=== PATIENT | female | born 1985 | race American Indian/Alaskan Native ===

== ENCOUNTER 2018-12-29 19:07 | Emergency (ER) | payer MEDICAID ==
[2018-12-29 20:45] LABS: Basophils # (Auto) 0.1 K/mm3 (0.0-0.1); Basophils % (Auto) 0.7 % (0.0-1.8); Eosinophils # (Auto) 0.2 K/mm3 (0.0-0.4); Eosinophils % (Auto) 1.7 % (0.0-4.3); Hematocrit 32.3 % (30.3-42.9); Hemoglobin 10.6 gm/dl (10.1-14.3); Lymphocytes # (Auto) 3.2 K/mm3 (1.2-5.4); Lymphocytes % (Auto) 36.1 % (13.4-35.0); Mean Corpuscular HGB Conc 33 % (30-34); Mean Corpuscular Volume 82 fl (79-97); Monocytes % (Auto) 11.1 % (0.0-7.3); Platelet Count 316 K/mm3 (140-440); Red Blood Count 3.93 M/mm3 (3.65-5.03); Red Cell Distribution Width 15.4 % (13.2-15.2)
[2018-12-29 20:57] LABS: Bacteria,Urine 1+ /HPF (Negative); Bilirubin,Urine NEG (Negative); Blood,Urine LG (Negative); Color,Urine Yellow (Yellow); Mucus,Urine FEW /HPF; Protein,Urine <15 mg/dL mg/dL (Negative); Urobilinogen,Urine < 2.0 mg/dL (<2.0)
[2018-12-29 21:00] LABS: HCG Qualitative,Urine Negative (Negative)
[2018-12-29 21:15] LABS: BUN/Creatinine Ratio 13; Blood Urea Nitrogen 10 mg/dL (7-17); Calcium 9.1 mg/dL (8.4-10.2); Hemolysis Index 1
[2018-12-29] MEDS ORDERED: TORADOL IV ONE (22:02)
[2018-12-29] MEDS ORDERED: ZOFRAN IV ONE (22:02)
[2018-12-29] MEDS ORDERED: TORADOL IM ONE (22:07)
--- NOTE | 2018-12-29 22:13 | Emergency Department Report ---
ED Female HPI - General Chief complaint: Abdominal Pain Stated complaint: LOWER ABD PAIN Time Seen by Provider: 12/29/18 22:00 Source: patient Mode of arrival: Ambulatory Limitations: No Limitations - History of Present Illness Initial comments: The patient is a 3-year-old female with a history of a AUB who presents for left flank pain she frequency but no hematuria and no fever no chills no nausea vomiting states history of renal stones does not think she has a renal stone at this time last menstrual cycle 1 month ago states vaginal bleeding 1 after starting Depo patient has not returned to follow-up GI appointment at this time MD Complaint: vaginal bleeding, dysuria Onset/Timin -: month(s) Radiation: non-radiating Severity: moderate Severity scale (0 -10): 4 Quality: cramping (spasm ) Consistency: intermittent Improves with: none Worsens with: urination Are you Now?: No Last Menstrual Period: 11/17/18 EDC: 08/24/19 Associated Symptoms: vaginal bleeding, abdominal pain, dysuria. denies: vaginal discharge, nausea/vomiting, fever/chills, headaches, loss of appetite, hematuria, rash, seizure, shortness of breath, syncope, weakness - Related Data Sexually active: Yes : 0 Para: 0 A: 0 Previous Rx's Medication Instructions Recorded Last Taken Type Ibuprofen 800 mg PO TID PRN #30 tablet 12/29/18 Unknown Rx Nitrofurantoin [place]/M-Cryst 100 mg PO BID 7 Days #14 capsule 12/29/18 Unknown Rx [Macrobid CAP] Allergies Allergy/AdvReac Type Severity Reaction Status Date / Time No Known Allergies Allergy Unverified 12/29/18 19:10 ED Review of Systems ROS: Stated complaint: LOWER ABD PAIN Other details as noted in HPI Constitutional: denies: chills, fever Eyes: denies: eye pain, eye discharge, vision change ENT: denies: ear pain, throat pain Respiratory: denies: cough, shortness of breath, wheezing Cardiovascular: denies: chest pain, palpitations Endocrine: no symptoms reported Gastrointestinal: abdominal pain. denies: nausea, vomiting, diarrhea, constipation, hematemesis, melena, hematochezia Genitourinary: urgency, dysuria, frequency. denies: hematuria, discharge, abnormal menses, dyspareunia Musculoskeletal: denies: back pain, joint swelling, arthralgia Skin: denies: rash, lesions Neurological: denies: headache, weakness, paresthesias Psychiatric: denies: anxiety, depression Hematological/Lymphatic: denies: easy bleeding, easy bruising ED Past Medical Hx - Past Medical History Previous Medical History?: Yes Additional medical history: Ovarian Cyst, Positive Colposcopy - Surgical History Past Surgical History?: No - Social History Smoking Status: Never Smoker Substance Use Type: None - Medications Home Medications: Home Medications Medication Instructions Recorded Confirmed Last Taken Type Ibuprofen 800 mg PO TID PRN #30 tablet 12/29/18 Unknown Rx Nitrofurantoin [place]/M-Cryst 100 mg PO BID 7 Days #14 capsule 12/29/18 Unknown Rx [Macrobid CAP] ED Physical Exam - General Limitations: No Limitations General appearance: alert, in no apparent distress - Head Head exam: Present: atraumatic, normocephalic - Eye Eye exam: Present: normal appearance, PERRL, EOMI - ENT ENT exam: Present: mucous membranes moist - Neck Neck exam: Present: normal inspection - Respiratory Respiratory exam: Present: normal lung sounds bilaterally. Absent: respiratory distress - Cardiovascular Cardiovascular Exam: Present: regular rate, normal rhythm. Absent: systolic murmur, diastolic murmur, rubs, gallop - GI/Abdominal GI/Abdominal exam: Present: soft, tenderness (mild LLQ tenderness ), normal bowel sounds. Absent: distended, guarding, rebound, rigid, bruit, hernia - Rectal Rectal exam: Present: deferred - Extremities Exam Extremities exam: Present: normal inspection, full ROM, normal capillary refill. Absent: calf tenderness - Back Exam Back exam: Present: normal inspection, full ROM. Absent: tenderness, CVA tenderness (R), CVA tenderness (L), rash noted - Neurological Exam Neurological exam: Present: alert, oriented X3, CN II-XII intact, normal gait, reflexes normal - Psychiatric Psychiatric exam: Present: normal affect, normal mood - Skin Skin exam: Present: warm, dry, intact, normal color. Absent: rash ED Course Vital Signs 12/29/18 12/29/18 19:22 19:49 Temperature 98.5 F 98.5 F Pulse Rate 83 79 Respiratory 18 18 Rate Blood Pressure 129/90 129/90 O2 Sat by Pulse 100 100 Oximetry ED Medical Decision Making - Lab Data Result diagrams: 12/29/18 20:10 12/29/18 20:10 Labs 12/29/18 12/29/18 12/29/18 20:10 20:10 20:17 WBC 8.8 RBC 3.93 Hgb 10.6 Hct 32.3 MCV 82 MCH 27 L MCHC 33 RDW 15.4 H Plt Count 316 Lymph % (Auto) 36.1 H [place] % (Auto) 11.1 H Eos % (Auto) 1.7 Baso % (Auto) 0.7 Lymph # 3.2 [place] # 1.0 H Eos # 0.2 Baso # 0.1 Seg Neutrophils % 50.4 Seg Neutrophils # 4.4 Sodium 142 Potassium 4.0 Chloride 101.5 Carbon Dioxide 29 Anion Gap 16 BUN 10 Creatinine 0.8 Estimated GFR > 60 BUN/Creatinine Ratio 13 Glucose 62 L Calcium 9.1 Urine Color Yellow Urine Turbidity Slightly-cloudy Urine pH 6.0 Ur Specific [place] 1.008 Urine Protein <15 mg/dl Urine Glucose (UA) Neg Urine Ketones Neg Urine Blood Lg Urine Nitrite Neg Urine Bilirubin Neg Urine Urobilinogen < 2.0 Ur Leukocyte Esterase Lg Urine WBC (Auto) 18.0 H Urine RBC (Auto) 15.0 U Epithel Cells (Auto) 15.0 H Urine Bacteria (Auto) 1+ Urine Mucus Few Urine HCG, Qual Negative - Medical Decision Making cbc: normal, cmp: normal, UA pos for leuk, WBC, RBC plan macrobid, ibuprofen follow up with ADMIN ASST for AUB , pt verbalized agreement and understanding of same. Critical care attestation.: If time is entered above; I have spent that time in minutes in the direct care of this critically ill patient, excluding procedure time. ED Disposition Clinical Impression: Abnormal uterine bleeding (AUB) UTI (urinary tract infection) Qualifiers: Urinary tract infection type: acute cystitis Hematuria presence: without hematuria Qualified Code(s): N30.00 - Acute cystitis without hematuria Disposition: TO HOME OR SELFCARE Is pt being admited?: No Does the pt Need Aspirin: No Condition: Stable Instructions: Abdominal Pain (ED), Urinary Tract Infection in Women (ED) Prescriptions: Ibuprofen 800 mg PO TID PRN #30 tablet PRN Reason: Pain , Severe (7-10) Nitrofurantoin [place]/M-Cryst [Macrobid CAP] 100 mg PO BID 7 Days #14 capsule Referrals: CHAVO HUITRON MD [Staff Physician] - 3-5 Days Forms: Work/School Release Form(ED) Time of Disposition: 22:28
[2018-12-29 23:27] VITALS: BP 136/88
== END 2018-12-29 23:06 | disposition home or self-care (01) ==
LOC: ED 19:07
DX: N30.00 Acute cystitis without hematuria (principal)
CPT/HCPCS: 36415; 80048; 81001; 81025; 85025; 96372; 99283; J1885

== ENCOUNTER 2019-07-25 20:21 | Emergency (ER) | payer MEDICAID ==
--- NOTE | 2019-07-26 01:02 | Emergency Department Report ---
ED General Adult HPI - General Chief complaint: Skin Rash Stated complaint: RASH Source: patient Mode of arrival: Ambulatory Limitations: No Limitations - History of Present Illness Initial comments: Patient is a 34-year-old female with no past medical history who presents to the ED with complaint of acute onset persistent itchy erythematous maculopapular dry skin rashes for the last 5 days. Patient states that she traveled to [facility] over 1 week ago and started having these symptoms upon arrival back from [place]. Patient denies fever, chills, nausea, vomiting, chest pain, shortness of breath, abdominal pain, dizziness, headache, or sore throat. MD Complaint: Diffuse erythematous rash -: Sudden, days(s) (5) Location: chest, back, abdomen, upper extremity, lower extremity Radiation: non-radiation Severity scale (0 -10): 2 Quality: burning, dull, other (itching) Consistency: constant Improves with: none Worsens with: none Associated Symptoms: denies other symptoms, rash (diffuse erythematous maculopapular dry scaly rashes). denies: confusion, chest pain, cough, diaphoresis, fever/chills, headaches, loss of appetite, malaise, nausea/vomiting, shortness of breath, syncope, weakness, other Treatments Prior to Arrival: none - Related Data Previous Rx's Medication Instructions Recorded Last Taken Type Ibuprofen [Ibuprofen 800] 800 mg PO TID PRN #30 tablet 12/29/18 Unknown Rx Nitrofurantoin [place]/M-Cryst 100 mg PO BID 7 Days #14 capsule 12/29/18 Unknown Rx [Macrobid CAP] Terbinafine (Nf) [LamiSIL] 250 mg PO QDAY #14 tablet 07/26/19 Unknown Rx diphenhydrAMINE [Benadryl CAP] 25 mg PO Q6HR PRN #30 capsule 07/26/19 Unknown Rx Allergies Allergy/AdvReac Type Severity Reaction Status Date / Time No Known Allergies Allergy Unverified 12/29/18 19:10 ED Review of Systems ROS: Stated complaint: RASH Other details as noted in HPI Constitutional: denies: chills, fever Eyes: denies: eye pain, eye discharge, vision change ENT: denies: ear pain, throat pain Respiratory: denies: cough, shortness of breath, wheezing Cardiovascular: denies: chest pain, palpitations Endocrine: no symptoms reported Gastrointestinal: denies: abdominal pain, nausea, diarrhea Genitourinary: denies: urgency, dysuria, discharge Musculoskeletal: denies: back pain, joint swelling, arthralgia Skin: rash, change in color, other (diffuse erythematous maculopapular dry scaly rashes). denies: lesions Neurological: denies: headache, weakness, paresthesias Psychiatric: denies: anxiety, depression Hematological/Lymphatic: denies: easy bleeding, easy bruising ED Past Medical Hx - Past Medical History Additional medical history: Ovarian Cyst, Positive Colposcopy - Social History Smoking Status: Never Smoker Substance Use Type: None - Medications Home Medications: Home Medications Medication Instructions Recorded Confirmed Last Taken Type Ibuprofen [Ibuprofen 800] 800 mg PO TID PRN #30 tablet 12/29/18 Unknown Rx Nitrofurantoin [place]/M-Cryst 100 mg PO BID 7 Days #14 capsule 12/29/18 Unknown Rx [Macrobid CAP] Terbinafine (Nf) [LamiSIL] 250 mg PO QDAY #14 tablet 07/26/19 Unknown Rx diphenhydrAMINE [Benadryl CAP] 25 mg PO Q6HR PRN #30 capsule 07/26/19 Unknown Rx ED Physical Exam - General Limitations: No Limitations General appearance: alert, in no apparent distress - Head Head exam: Present: atraumatic, normocephalic, normal inspection - Eye Eye exam: Present: normal appearance, PERRL, EOMI - ENT ENT exam: Present: normal exam, normal orophraynx, mucous membranes moist, TM's normal bilaterally, normal external ear exam - Neck Neck exam: Present: normal inspection, full ROM - Respiratory Respiratory exam: Present: normal lung sounds bilaterally. Absent: respiratory distress, wheezes, rhonchi, stridor, chest wall tenderness, accessory muscle use, decreased breath sounds, prolonged expiratory - Cardiovascular Cardiovascular Exam: Present: regular rate, normal rhythm, normal heart sounds. Absent: systolic murmur, diastolic murmur, rubs, gallop - GI/Abdominal GI/Abdominal exam: Present: soft, normal bowel sounds. Absent: tenderness, guarding, rebound, hyperactive bowel sounds, hypoactive bowel sounds, mass - Extremities Exam Extremities exam: Present: normal inspection, full ROM, normal capillary refill - Back Exam Back exam: Present: normal inspection, full ROM - Neurological Exam Neurological exam: Present: alert, oriented X3, CN II-XII intact, normal gait, reflexes normal - Psychiatric Psychiatric exam: Present: normal affect, normal mood - Skin Skin exam: Present: warm, dry, intact, normal color, rash (diffuse erythematous maculopapular dry scaly rashes), erythema, vesicles ED Course Vital Signs 07/25/19 20:41 Temperature 98.1 F Pulse Rate 79 Respiratory 18 Rate Blood Pressure 100/71 O2 Sat by Pulse 99 Oximetry ED Medical Decision Making - Medical Decision Making This is a 34-year-old female who presented to the ED with erythematous maculopapular dry scaly rashes diffusely for 5 days. In the ED, patient is alert and oriented 3 and is not in any distress. Physical exam confirms the presence of diffuse erythematous dry scaly rash is consistent with tinea corporis. Patient was discharged home on Lamisil 250 mg daily for 2 weeks. Patient is advised to follow-up with her primary care physician in 7-10 days for reevaluation or return to the ED immediately if her symptoms get worse or if she develops right upper quadrant abdominal pain, nausea and vomiting. Patient was also cautioned against alcohol consumption when taking these medications. - Differential Diagnosis Tinea corporis; Irritant dermatitis; itching Critical care attestation.: If time is entered above; I have spent that time in minutes in the direct care of this critically ill patient, excluding procedure time. ED Disposition Clinical Impression: Tinea corporis, Itching Disposition: [id number]-01 TO HOME OR SELFCARE Is pt being admited?: No Does the pt Need Aspirin: No Condition: Stable Instructions: Tinea Corporis (ED) Additional Instructions: Take medications with food, drink plenty of fluids and follow-up with your primary care physician in 7-10 days for reevaluation. Return to the ED immediately if symptoms get worse. Prescriptions: diphenhydrAMINE [Benadryl CAP] 25 mg PO Q6HR PRN #30 capsule PRN Reason: Itching Terbinafine (Nf) [LamiSIL] 250 mg PO QDAY #14 tablet Referrals: PRIMARY CARE, [Primary Care Provider] - 3-5 Days Time of Disposition: 01:00 Print Language: THAI
[2019-07-26 01:10] VITALS: BP 104/74
== END 2019-07-26 01:11 | disposition home or self-care (01) ==
LOC: ED 20:21
DX: B35.4 Tinea corporis (principal); Z79.899 Other long term (current) drug therapy; Z98.890 Other specified postprocedural states